=== PATIENT | female | born 1995 | race Caucasian/White ===

== ENCOUNTER 2017-06-25 10:59 | Emergency (ER) | payer MEDICAID, SELFPAY ==
[2017-06-25 11:07] VITALS: BP 121/75; PULSE 81; RESP 16; TEMP 36.4; O2SAT 99; BMI 24.0
[2017-06-25 11:13] VITALS: BP 133/74; PULSE 79; RESP 18; TEMP 36.6; O2SAT 98; BMI 24.0
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
[2017-06-25 11:52] VITALS: BP 132/88; PULSE 70; RESP 18; TEMP 36.6
== END 2017-06-25 11:53 | disposition home or self-care (01) ==
PROVIDERS: Emergency Provider Nurse Practitioner; Family Provider Family Medicine
DX: T23.251A Burn of second degree of right palm, initial encounter (principal); X15.0XXA Contact with hot stove (kitchen), initial encounter; Y92.010 Kitchen of single-family (private) house as the place of occurrence of the external cause
CPT/HCPCS: 99202

== ENCOUNTER → 2018-10-04 14:05 | Outpatient (CLI) | payer MEDICAID, SELFPAY ==
[2018-10-04 14:13] LABS: Adenovirus F 40/41, stool Not Detected (NotDetected); Astrovirus Not Detected (NotDetected); Campylobacter Not Detected (NotDetected); Clostridium Difficile A/B, PCR Not Detected (NotDetected); Cryptosporidium Not Detected (NotDetected); Cyclospora Cayetanesis Not Detected (NotDetected); Entamoeba histolytica Not Detected (NotDetected); Enteroaggregative E coli Not Detected (NotDetected); Enteropathogenic E coli Not Detected (NotDetected); Enterotoxigenic E coli Not Detected (NotDetected); Giardia lamblia Not Detected (NotDetected); Norovirus Not Detected (NotDetected); Plesimonas Shigalloides, PCR Not Detected (NotDetected); Rotavirus A Not Detected (NotDetected); Salmonella, PCR Not Detected (NotDetected); Sapovirus Not Detected (NotDetected); Shiga-like toxin E coli Not Detected (NotDetected); Shigella Enterovasive E coli Not Detected (NotDetected); Vibrio Cholerae Not Detected (NotDetected); Vibrio, PCR Not Detected (NotDetected); Yersinia Entercolitica, PCR Not Detected (NotDetected)
== END ==
PROVIDERS: Visit Provider Nurse Practitioner Family
DX: K52.9 Noninfective gastroenteritis and colitis, unspecified (principal)
CPT/HCPCS: 87507

== ENCOUNTER → 2018-10-17 15:47 | Outpatient (POV) | payer MEDICAID, SELFPAY | PROVIDERS: PCP Nurse Practitioner Family; Visit Provider Nurse Practitioner Family | DX: Z00.00 Encounter for general adult medical examination without abnormal findings (principal) ==

== ENCOUNTER → 2018-11-28 13:45 | Outpatient (POV) | payer MEDICAID, SELFPAY | PROVIDERS: PCP Nurse Practitioner Family; Visit Provider Nurse Practitioner Family | DX: Z00.00 Encounter for general adult medical examination without abnormal findings (principal) ==

== ENCOUNTER → 2020-05-23 12:15 | Outpatient (CLI) | payer BC, SELFPAY ==
[2020-05-23 13:01] LABS: Basophils % 0.3 % (0.1-2.0); Eosinophils # 0.1 K/mm3 (0.0-0.4); Eosinophils % 1.1 % (0.1-12.0); Hematocrit 40.4 % (37.0-47.0); Hemoglobin 13.1 g/dL (12.2-16.2); Lymphocytes # 1.8 K/mm3 (0.7-4.5); Lymphocytes % 25.4 % (10-50); Mean Corpuscular HGB Conc 32.4 g/dL (31.8-35.4); Mean Corpuscular Hemoglobin 27.6 pg (27.0-31.2); Mean Corpuscular Volume 85.1 fl (81-99); Mean Platelet Volume 7.6 fl (7.4-10.4); Monocytes # 0.4 K/mm3 (0.1-1.0); Monocytes % 6.2 % (1.7-9.3); Neutrophils # 4.7 K/mm3 (1.8-7.8); Platelet Count 256 K/mm3 (142-424); Red Blood Count 4.75 M/mm3 (4.20-5.40); Red Cell Distribution Width 13.2 % (11.5-17.5)
[2020-05-23 13:38] LABS: Strep Scrn Group A (Rapid) Negative (Negative)
== END ==
PROVIDERS: PCP Family Medicine; Visit Provider Nurse Practitioner Family
DX: Z20.822 Contact with and (suspected) exposure to COVID-19 (principal); J02.9 Acute pharyngitis, unspecified
CPT/HCPCS: 36415; 85025; 87430; U0003

== ENCOUNTER → 2020-07-08 11:06 | Outpatient (CLI) | payer BC, SELFPAY ==
[2020-07-08 13:13] LABS: HCG,Quantitative 13003 mIU/ml (0-5.42)
== END ==
PROVIDERS: Visit Provider Nurse Practitioner Obstetrics & Gynecology
DX: Z34.90 Encounter for supervision of normal pregnancy, unspecified, unspecified trimester (principal)
CPT/HCPCS: 36415; 84702

== ENCOUNTER → 2020-07-15 16:36 | Outpatient (CLI) | payer BC, SELFPAY ==
[2020-07-15 17:04] LABS: Basophils # 0.1 K/mm3 (0-0.2); Basophils % 0.5 % (0.1-2.0); Eosinophils # 0.1 K/mm3 (0.0-0.4); Hematocrit 41.8 % (37.0-47.0); Lymphocytes % 20.1 % (10-50); Mean Corpuscular HGB Conc 33.6 g/dL (31.8-35.4); Mean Corpuscular Hemoglobin 28.4 pg (27.0-31.2); Mean Corpuscular Volume 84.6 fl (81-99); Mean Platelet Volume 7.6 fl (7.4-10.4); Monocytes # 0.4 K/mm3 (0.1-1.0); Neutrophils # 7.6 K/mm3 (1.8-7.8); Neutrophils % 74.4 % (37.0-80.0); Platelet Count 275 K/mm3 (142-424); Red Blood Count 4.94 M/mm3 (4.20-5.40); Red Cell Distribution Width 13.6 % (11.5-17.5); White Blood Count 10.2 K/mm3 (4.8-10.8)
[2020-07-17 08:23] LABS: HIV Screen 4th Generation wRfx Non Reactive (Non Reactive)
[2020-07-17 18:04] LABS: Hepatitis B Surface Antigen Negative (Negative); Hepatitis C Antibody <0.1 s/co ratio (0.0-0.9); Rapid Plasma Reagin Ab Titer Non Reactive (NonRea<1:1)
== END ==
PROVIDERS: Visit Provider Nurse Practitioner Obstetrics & Gynecology
DX: Z34.90 Encounter for supervision of normal pregnancy, unspecified, unspecified trimester (principal)
CPT/HCPCS: 36415; 85025; 86592; 86703; 86762; 86850; 87340; 87380; G0432

== ENCOUNTER → 2020-07-17 14:06 | Outpatient (CLI) | payer BC, SELFPAY ==
--- NOTE | 2020-07-17 14:12 | US_ITS ---
PROCEDURE: US OB <= 14 WEEKS FETUS CLINICAL INDICATION: for dates COMPARISON: No exams were available for comparison FINDINGS: An intrauterine gestational sac is present with a pole with a crown-rump length of 1.13cm correlating to gestational age of 7weeks 2days. heart tones are present with an FHR of 149bpm. Yolk sac is noted. Carpal is lutea cyst is noted in the right ovary. Left ovary is unremarkable. IMPRESSION: Single viable intrauterine gestation with gestational age of 7 weeks and 2 days. Estimated due date by Ultrasound is 03/03/2021 Dictated by: Radha Velasco 07/18/2020 13:13 Radha Velasco in [facility] 07/18/2020 13:13
== END ==
PROVIDERS: PCP Family Medicine; Visit Provider Nurse Practitioner Obstetrics & Gynecology
DX: Z34.90 Encounter for supervision of normal pregnancy, unspecified, unspecified trimester (principal)
CPT/HCPCS: 76801

== ENCOUNTER 2020-07-30 05:35 | Emergency (ER) | payer BC, SELFPAY ==
[2020-07-30 05:38] VITALS: BP 154/77; PULSE 76; RESP 20; TEMP 36.6; O2SAT 100; BMI 26.6
--- NOTE | 2020-07-30 05:43 | HMH.EDGENADL ---
ED Disposition Clinical Impression: Morning sickness Disposition: Home, Self-Care Condition on Discharge: Good Additional Instructions: Take Reglan in the mornings for nausea/vomiting. Follow a bland diet. Follow-up with [facility]. Immediate return if any intractable nausea/vomiting, hematemesis, vaginal bleeding, abdominal pain, other new symptoms. Prescriptions: Metoclopramide HCl [Reglan 5mg Tablet] 5 mg PO AC PRN 21 Days #21 tab PRN Reason: Vomiting Transmission Status: Pending to [facility] Referrals: Enrike Pace [Primary Care Provider] - - Critical Care Critical Care Time: No Attestation: On , the high probability of a clinically significant, sudden or life threatening deterioration of the following system(s) required my full and direct attention, intervention and personal management. The time I documented below is in addition to time spent performing reported procedures but includes the following listed in this critical care notation. Medical Decision Making - Medical Records Medical records reviewed: Yes: I reviewed the patient's medical records. - Scot Inquiry Pt receiving controlled substance: No Vital Signs: 07/30/20 05:38 Temperature 97.8 F Temperature Source Oral Pulse Rate [Right Brachial] 76 Respiratory Rate 20 Blood Pressure [Right Arm] 154/77 H Blood Pressure Mean [Right Arm] 102 Blood Pressure Source [Right Arm] Automatic Cuff 02 Sat by Pulse Oximetry 100 Oxygen Delivery Method Room Air - Lab Data Lab Results 07/30/20 05:58: WBC 8.2, RBC 4.57, Hgb 12.8, Hct 38.1, MCV 83.3, MCH 28.0, MCHC 33.6, RDW 13.6, Plt Count 218, MPV 7.2 L, Neut % (Auto) 77.2, Lymph % (Auto) 17.6, [place] % (Auto) 4.5, Eos % (Auto) 0.5, Baso % (Auto) 0.2, Neut # (Auto) 6.3, Lymph # (Auto) 1.4, [place] # (Auto) 0.4, Eos # (Auto) 0.0, Baso # (Auto) 0.0 07/30/20 05:58: Sodium 137, Potassium 3.8, Chloride 103, Carbon Dioxide 25, Anion Gap 12.8, BUN 6 L, Creatinine 0.50 L, Estimated Creat Clear 224, Estimated GFR 152, Est GFR ( Amer) 183, Glucose 107 H, Calcium 9.4, Magnesium 1.8, Total Bilirubin 0.4, AST 27, ALT 17, Alkaline Phosphatase 54, Total Protein 7.1, Albumin 4.3, Globulin 2.8, Albumin/Globulin Ratio 1.5, Lipase 142, HCG, Quant [id number] H 07/30/20 06:58: Urine Color Yellow, Urine Appearance Clear, Urine pH 8.5, Ur Specific [place] 1.015, Urine Protein Negative, Urine Glucose (UA) Negative, Urine Ketones Negative, Urine Blood Negative, Urine Nitrate Negative, Urine Bilirubin Negative, Urine Urobilinogen 0.2, Ur Leukocyte Esterase Negative, Urine RBC None, Urine WBC 3-5, Ur Squamous Epith Cells Occasional, Urine Bacteria None Result diagrams: 07/30/20 05:58 07/30/20 05:58 Orders (Tests/Meds): ED MEDICATIONS Generic Name Dose Route Start Last Admin Trade Name Freq PRN Reason Stop Dose Admin Lactated Ringer's 1,000 mls @ 999 mls/hr 07/30/20 05:45 07/30/20 05:50 Lactated Ringer's 1000 Ml Bag IV 07/30/20 06:45 999 mls/hr .Q1H1M JOHANNY Administration Discontinued Medications Generic Name Dose Route Start Last Admin Trade Name Freq PRN Reason Stop Dose Admin Doxylamine Succinate/Pyridoxine 1 tab 07/30/20 05:45 07/30/20 05:50 Doxylamine 10mg/Pyridoxine 10mg Tablet PO 07/30/20 05:46 1 tab ONCE ONE Administration Pyridoxine HCl 25 mg 07/30/20 05:45 Pyridoxine (Vitamin B6) 50mg Tablet PO 07/30/20 05:46 ONCE ONE Medical Decision Narrative: Patient 25-year-old female presenting with vomiting in the first trimester . Differential diagnosis does include morning sickness versus hyperemesis gravidarum versus atypical pancreatitis versus cystitis. At this time, patient did have some blood mixed into her vomitus consistent with a superficial mucosal tear of her esophagus. No crepitus noted on examination or any signs consistent with pneumomediastinum. She is rather well-appearing. Normal vital signs. No vaginal bleeding or abdominal pain. Wor
[2020-07-30 06:08] LABS: Basophils % 0.2 % (0.1-2.0); Eosinophils % 0.5 % (0.1-12.0); Hematocrit 38.1 % (37.0-47.0); Hemoglobin 12.8 g/dL (12.2-16.2); Lymphocytes # 1.4 K/mm3 (0.7-4.5); Lymphocytes % 17.6 % (10-50); Mean Corpuscular HGB Conc 33.6 g/dL (31.8-35.4); Mean Corpuscular Volume 83.3 fl (81-99); Mean Platelet Volume 7.2 fl (7.4-10.4); Monocytes # 0.4 K/mm3 (0.1-1.0); Monocytes % 4.5 % (1.7-9.3); Neutrophils # 6.3 K/mm3 (1.8-7.8); Neutrophils % 77.2 % (37.0-80.0); Platelet Count 218 K/mm3 (142-424); Red Blood Count 4.57 M/mm3 (4.20-5.40); Red Cell Distribution Width 13.6 % (11.5-17.5); White Blood Count 8.2 K/mm3 (4.8-10.8)
[2020-07-30 06:11] LABS: Chloride 103 mmol/L (98-107); Potassium 3.8 mmoL/L (3.5-5.1); Sodium 137 mmol/L (136-145)
[2020-07-30 06:14] LABS: Alanine Aminotransferase 17 U/L (12-78); Albumin Level 4.3 g/dl (3.5-5.0); Albumin/Globulin Ratio 1.5 (1.1-1.8); Alkaline Phosphatase 54 U/L (38-126); Anion Gap 12.8 mEq/L (5-15); Aspartate Amino Transferase 27 U/L (14-36); Bilirubin,Total 0.4 mg/dl (0.2-1.3); Blood Urea Nitrogen 6 mg/dl (7-17); Calcium 9.4 mg/dl (8.4-10.2); Carbon Dioxide 25 mmol/L (22.0-30.0); Estimated Glomerular Filt Rate 152 ml/min (>60); GFR (African American) 183 ML/MIN (>60); Globulin 2.8 g/dL (1.3-3.2); Glucose 107 mg/dl (74-100); Lipase 142 U/L (23-300); Total Protein,Serum 7.1 g/dl (6.3-8.2)
[2020-07-30 06:15] LABS: Magnesium 1.8 mg/dl (1.6-2.3)
[2020-07-30 06:31] LABS: Creatinine Clearance Estimated 224 mL/min (50-200)
[2020-07-30 07:01] LABS: Microscopic, Urine URINE MICROSCOPIC (MICROSCOPIC)
[2020-07-30 07:02] LABS: Appearance,Urine CLEAR (Clear); Bilirubin,Urine Negative (Negative); Blood, Urine Negative (Negative); Color,Urine YELLOW (Yellow); Glucose,Urine (UA) Negative (Negative); Ketones,Urine Negative (Negative); Leukocyte Esterase,Urine Negative (Negative); Nitrate,Urine Negative (Negative); PH,Urine 8.5 (5.0-8.5); Protein,Urine Negative (Negative); Specific Gravity, Urine 1.015 (1.005-1.030); Urobilinogen,Urine 0.2 EU/dl (0.2)
[2020-07-30 07:17] LABS: Squamous Epithelial Cell,Urine Occasional #/hpf (0-5)
[2020-07-30 07:37] VITALS: BP 132/71; PULSE 81; RESP 18; TEMP 36.7; O2SAT 98
== END 2020-07-30 07:31 | disposition home or self-care (01) ==
PROVIDERS: Emergency Provider Emergency Medicine; PCP Family Medicine
DX: O21.0 Mild hyperemesis gravidarum (principal); Z3A.09 9 weeks gestation of pregnancy
CPT/HCPCS: 80053; 81001; 83690; 83735; 84702; 85025; 99281

== ENCOUNTER → 2020-10-14 13:47 | Outpatient (CLI) | payer BC, SELFPAY ==
--- NOTE | 2020-10-14 13:48 | US_ITS ---
PROCEDURE: US OB /MATERNAL DETAIL CLINICAL INDICATION: US OB Complete 20wk+ Anatomy Scan COMPARISON: US US OB <= 14 WEEKS FETUS from 07/17/2020 FINDINGS: Single live fetus which is in cephalic presentation. heart body motion noted. Placenta is posterior and grade 1. Cervix is closed measuring 4 cm. Complete survey performed and was unremarkable on the submitted images as in PACS. No discrete anomalies identified on survey imaging by technologist. Active fetus. Three-vessel cord with satisfactory umbilical cord insertion. 4- chamber heart noted. Survey of brain & ventricles Unremarkable. Face and neck survey unremarkable. Diaphragm and chest views unremarkable. Abdomen: Both kidneys noted and unremarkable. Stomach noted and satisfactory. Spine: Survey of the spine satisfactory with no anomalies identified nor imaged. Both arms and legs noted. Amniotic Fluid: Adequate. Maternal adnexa: No significant findings. Measurements: Average ultrasound age 20weeks 5days. Gestational Age 20weeks Estimated due date by ultrasound age 1102/26/2021. Estimated weight 364g BPD = 21weeks OFD = 20weeks 5days HC = 20weeks 1day AC = 20weeks 4days FL = 20weeks 6days Growth Percentile= 79Percent% Heart Rate = 140bpm Cerebellum = 20weeks 2days Humerus = 20weeks 4days HC/AC is 1.14 CI is 0.81 FL/BPD is 0.69 FL/AC is 0.22 IMPRESSION: Live IUP at 20 weeks 5 days. Cephalic presentation. No obvious anomalies. All parameters correlate. Please see above for detail. Dictated by: Jovi Hernandez MD 10/15/2020 08:18 Jovi Hernandez MD in OV 10/15/2020 08:18
== END ==
PROVIDERS: PCP Internal Medicine; Visit Provider Nurse Practitioner Obstetrics & Gynecology
DX: Z36.0 Encounter for antenatal screening for chromosomal anomalies (principal)
CPT/HCPCS: 76811

== ENCOUNTER → 2020-12-07 08:11 | Outpatient (CLI) | payer BC, SELFPAY ==
[2020-12-07 09:00] LABS: Glucose,Fasting 85 mg/dl (74-100)
[2020-12-07 11:00] LABS: Glucose 1 Hour 89 mg/dL (74-100)
== END ==
PROVIDERS: Visit Provider Nurse Practitioner Obstetrics & Gynecology
DX: Z34.90 Encounter for supervision of normal pregnancy, unspecified, unspecified trimester (principal)
CPT/HCPCS: 36415; 82951

== ENCOUNTER 2021-01-15 21:25 | Outpatient (CLI) | payer BC, SELFPAY ==
[2021-01-15 21:40] VITALS: BMI 31.7
[2021-01-15 21:53] VITALS: BP 129/76; PULSE 92; RESP 18; TEMP 36.7; O2SAT 98; BMI 31.7
[2021-01-15 21:56] LABS: Microscopic, Urine URINE MICROSCOPIC (MICROSCOPIC)
[2021-01-15 22:02] LABS: Appearance,Urine CLEAR (Clear); Bilirubin,Urine Negative (Negative); Blood, Urine Negative (Negative); Color,Urine YELLOW (Yellow); Glucose,Urine (UA) Negative (Negative); Ketones,Urine Negative (Negative); Leukocyte Esterase,Urine Negative (Negative); Nitrate,Urine Negative (Negative); Protein,Urine Negative (Negative); Specific Gravity, Urine 1.015 (1.005-1.030); Urobilinogen,Urine 0.2 EU/dl (0.2)
[2021-01-15 22:15] LABS: Barbiturates Screen,Urine Negative ng/ml (<200); Benzodiazepines Screen,Urine Negative ng/ml (<200)
[2021-01-15 22:16] LABS: Amphetamine/Metha Screen,Urine Negative ng/ml (<1000)
[2021-01-15 22:17] LABS: Cannabinoid Screen,Urine Positive ng/ml (<50); Cocaine Screen,Urine Negative ng/ml (<300)
[2021-01-15 22:18] LABS: Methadone Screen,Urine Negative ng/ml (<300)
[2021-01-15 22:19] LABS: Opiate Screen,Urine Negative ng/ml (<300); Phencyclidine Screen,Urine Negative ng/ml (<25)
[2021-01-15 22:22] LABS: Squamous Epithelial Cell,Urine Occasional #/hpf (0-5); WBC,Urine Occasional #/hpf (0-3)
== END 2021-01-15 22:30 | disposition home or self-care (01) ==
LOC: OBOUT 21:29 → OB 21:31
PROVIDERS: PCP Nurse Practitioner Obstetrics & Gynecology; Visit Provider Nurse Practitioner Obstetrics & Gynecology
DX: O36.8130 Decreased fetal movements, third trimester, not applicable or unspecified (principal); Z3A.33 33 weeks gestation of pregnancy
CPT/HCPCS: 59025; 80305; 81001; G0463

== ENCOUNTER → 2021-01-29 18:22 | Outpatient (CLI) | payer BC, SELFPAY | PROVIDERS: Visit Provider Nurse Practitioner Obstetrics & Gynecology | DX: Z34.90 Encounter for supervision of normal pregnancy, unspecified, unspecified trimester (principal) | CPT/HCPCS: 86403 ==

== ENCOUNTER → 2021-01-30 15:48 | Outpatient (CLI) | payer BC, SELFPAY ==
[2021-01-30 16:29] LABS: Basophils % 0.3 % (0.1-2.0); Eosinophils # 0.1 K/mm3 (0.0-0.4); Eosinophils % 0.9 % (0.1-12.0); Hematocrit 36.8 % (37.0-47.0); Hemoglobin 12.3 g/dL (12.2-16.2); Lymphocytes % 16.3 % (10-50); Mean Corpuscular HGB Conc 33.5 g/dL (31.8-35.4); Mean Corpuscular Hemoglobin 31.1 pg (27.0-31.2); Mean Corpuscular Volume 92.8 fl (81-99); Mean Platelet Volume 8.6 fl (7.4-10.4); Monocytes # 0.5 K/mm3 (0.1-1.0); Monocytes % 4.5 % (1.7-9.3); Neutrophils # 9.4 K/mm3 (1.8-7.8); Platelet Count 260 K/mm3 (142-424); Red Blood Count 3.97 M/mm3 (4.20-5.40); Red Cell Distribution Width 14.9 % (11.5-17.5); White Blood Count 12.1 K/mm3 (4.8-10.8)
[2021-01-30 17:14] LABS: D-Dimer 1.02 ug/mL (0.0-0.5)
[2021-01-30 17:54] LABS: Alanine Aminotransferase 19 U/L (12-78); Aspartate Amino Transferase 28 U/L (14-36); Blood Urea Nitrogen 9 mg/dl (7-17); Calcium 9.3 mg/dl (8.4-10.2); Carbon Dioxide 21 mmol/L (22.0-30.0); Chloride 107 mmol/L (98-107); Estimated Glomerular Filt Rate 273 ml/min (>60); GFR (African American) 331 ML/MIN (>60); Glucose 105 mg/dl (74-100); Sodium 136 mmol/L (136-145); Uric Acid 2.7 mg/dl (2.5-6.2)
[2021-01-30 17:59] LABS: Activated Partial Thrombo Time 24.8 seconds (22.8-30.6); Fibrinogen 504 mg/dL (229.9-363.5); INR 0.87 (0.9-1.1); Prothrombin Time 9.9 seconds (10.1-12.5)
[2021-01-30 18:03] LABS: NT Pro Brain Natriuretic Pep. 30.2 pg/mL (0-125)
== END ==
PROVIDERS: Visit Provider Nurse Practitioner Obstetrics & Gynecology
DX: O13.9 Gestational [pregnancy-induced] hypertension without significant proteinuria, unspecified trimester (principal); I42.9 Cardiomyopathy, unspecified
CPT/HCPCS: 36415; 80048; 83880; 84450; 84460; 84550; 85025; 85378; 85384; 85610; 85730

== ENCOUNTER → 2021-02-06 07:50 | Outpatient (CLI) | payer BC, SELFPAY ==
--- NOTE | 2021-02-06 07:51 | CA_ITS ---
APPROVED REPORT EXAM: Comprehensive 2D, Doppler, and color-flow Echocardiogram Pyrotechnician: Sharlene Jesus RVT Ht: 5 ft 9 in Wt: 224lbs BSA: 2.17 BP: 122/76 mmHg Indications: EDEMA, 36 WKS PREG,SOA 2D Dimensions LVOT 2.00 cm (M/F) 1.5-2.5 LA Volume 12.70 mL LA Volume Index 5.87 mL/m2 (M/F) 16-34 M-Mode Dimensions RVDd 2.66 cm (0.9-2.6) LA Diam 2.80 cm (1.9-4.0) LVDd 3.61 cm (3.5-5.7) Ao Diam 3.22 cm (2.0-3.7) LVDs 2.12 cm (3.5-5.7) IVSd 0.98 cm (0.6-1.1) PWd 0.97 cm (0.6-1.1) EF (Teich) 73.00% FS 41.30% EDV (Teich) 54.80 mL TAPSE 1.98 (<1.7) ESV (Teich) 14.80 mL LV Diastology E Decel Time 150.00 (160-240 msec) E/A Ratio 2.1 MED E' 6.50 (< 7 cm/sec) E'/MED E' Ratio 13.42 (>14) LAT E' 12.30 (<10 cm/sec) E/LAT E' Ratio 7.09 (>14) Aortic Valve AO Peak GR. 4.10 mmHg Mitral Valve MV E Max Molina. 87.00 (40-130 cm/s) MV A Velocity 42.00 (40-130 cm/s) E/A Ratio 2.06 MV Decel. Time 150.00 (160-240 ms) MV PHT 44.00 ms Pulmonary Valve PV Peak Velocity 74.00 (50-150 cm/s) Tricuspid Valve TR P. Velocity 204.00 cm/s RAP Estimate 10.00 mmHg RVSP 26.70 mmHg Left Ventricle Left atrium is normal size, left ventricle is normal size, there is no concentric left ventricular hypertrophy, there is preserved left ventricular systolic function, visually estimated ejection fraction 55% with no regional wall motion abnormality, diastolic parameters are within normal range. Right Ventricle Right atrium and right ventricle are normal size and contractility. Aortic Valve Aortic valve is grossly normal, there is no aortic stenosis or aortic insufficiency. Mitral Valve Mitral valve is grossly normal, there is trace mitral regurgitation. Tricuspid Valve Tricuspid grossly normal, there is trace tricuspid regurgitation, tricuspid regurgitation jet velocity is inadequate for calculation of the right ventricular systolic pressure. Pulmonic Valve Pulmonic valve is poorly visualized. Great Vessels Aortic root is normal size. Inferior vena cava normal size with normal inspiratory collapse. Pericardium No significant pericardial effusion noted. Conclusion 1. Normal left ventricular size, preserved left ventricular systolic function, visually estimated ejection fraction 55% with no regional wall motion abnormality, diastolic parameters are within normal range. 2. Trace mitral and tricuspid regurgitation. 3. No significant pericardial effusion noted. 4. Inferior vena cava is normal size with normal inspiratory collapse. Electronically signed by : Vinayak Womack MD 02/06/2021 16:31:06
--- NOTE | 2021-02-06 10:26 | US_ITS ---
PROCEDURE: US OB BIOPHYSICAL PROFILE CLINICAL INDICATION: lga Large for gestational age TECHNIQUE: FINDINGS: The following parameters are obtained: There is a single live fetus present which is in cephalic presentation. The cervix is closed measuring 4 cm. The placenta is posterior and grade 2. Average ultrasound age is Average 37weeks 4days Estimated due date by ultrasound is 02/23/2021. Estimated weight is 3,247g. This is 82 percentile BPD: 38 weeks 1 day OFD: HC: 37 weeks 5 days AC: 38 weeks 2 days FL: 35 weeks 6 days heart rate: 128bpm bpm. HC/AC: 0.96 Cephalic index: 0.81 FL/BPD: 0.75 FL/AC: 0.2 Amniotic fluid index: 11.23cm Qualitative AFV: 2 breathing movements: 2 Gross body movements: 2 Tone: 2 Biophysical profile score: 8 IMPRESSION: Live IUP which is in cephalic presentation with an average ultrasound age of 37 weeks 4 days with an estimated weight of 3247 g which is 82 percentile. Normal amniotic fluid index of 11 cm. Normal biophysical profile 8 of 8 Dictated by: Jovi Hernandez MD 02/06/2021 16:39 Jovi Hernandez MD in [facility] 02/06/2021 16:39
== END ==
PROVIDERS: PCP Family Medicine; Visit Provider Nurse Practitioner Obstetrics & Gynecology
DX: O36.60X0 Maternal care for excessive fetal growth, unspecified trimester, not applicable or unspecified; I42.9 Cardiomyopathy, unspecified; R60.9 Edema, unspecified
CPT/HCPCS: 76816; 76819; 93306

== ENCOUNTER 2021-02-13 01:23 | Outpatient (CLI) | payer BC, SELFPAY ==
[2021-02-13 01:31] VITALS: BMI 33.6
[2021-02-13 01:42] LABS: Microscopic, Urine URINE MICROSCOPIC (MICROSCOPIC)
[2021-02-13 01:44] LABS: Appearance,Urine SL CLOUDY (Clear); Bilirubin,Urine Negative (Negative); Blood, Urine Negative (Negative); Color,Urine YELLOW (Yellow); Glucose,Urine (UA) Negative (Negative); Ketones,Urine Negative (Negative); Leukocyte Esterase,Urine Negative (Negative); Nitrate,Urine Negative (Negative); PH,Urine 6.5 (5.0-8.5); Protein,Urine Negative (Negative); Specific Gravity, Urine 1.025 (1.005-1.030); Urobilinogen,Urine 0.2 EU/dl (0.2)
[2021-02-13 01:51] LABS: Amorphous Sediment,Urine Trace /lpf; Bacteria,Urine 4+ /lpf; Mucus,Urine 1+ /lpf
[2021-02-13 01:58] LABS: Barbiturates Screen,Urine Negative ng/ml (<200)
[2021-02-13 01:59] LABS: Benzodiazepines Screen,Urine Negative ng/ml (<200)
[2021-02-13 02:00] LABS: Amphetamine/Metha Screen,Urine Negative ng/ml (<1000)
[2021-02-13 02:01] LABS: Cocaine Screen,Urine Negative ng/ml (<300)
[2021-02-13 02:02] LABS: Cannabinoid Screen,Urine Negative ng/ml (<50); Methadone Screen,Urine Negative ng/ml (<300)
[2021-02-13 02:03] LABS: Opiate Screen,Urine Negative ng/ml (<300); Phencyclidine Screen,Urine Negative ng/ml (<25)
[2021-02-13 02:04] VITALS: BP 133/88; PULSE 89; RESP 18; TEMP 36.5; O2SAT 97; BMI 33.7
[2021-02-13 03:51] LABS: Chloride 105 mmol/L (98-107); Potassium 3.7 mmoL/L (3.5-5.1); Sodium 137 mmol/L (136-145)
[2021-02-13 03:54] LABS: Alanine Aminotransferase 18 U/L (12-78); Anion Gap 11.7 mEq/L (5-15); Aspartate Amino Transferase 26 U/L (14-36); Blood Urea Nitrogen 8 mg/dl (7-17); Calcium 8.8 mg/dl (8.4-10.2); Carbon Dioxide 24 mmol/L (22.0-30.0); Creatinine Clearance Estimated 284 mL/min (50-200); Estimated Glomerular Filt Rate 152 ml/min (>60); GFR (African American) 183 ML/MIN (>60); Glucose 91 mg/dl (74-100)
[2021-02-13 04:12] LABS: D-Dimer 1.11 ug/mL (0.0-0.5)
[2021-02-13 04:13] LABS: Activated Partial Thrombo Time 22.2 seconds (22.8-30.6); INR 0.86 (0.9-1.1); Prothrombin Time 9.8 seconds (10.1-12.5)
[2021-02-13 05:17] LABS: Fibrinogen 444 mg/dL (229.9-363.5)
== END 2021-02-13 04:40 | disposition home or self-care (01) ==
LOC: OBOUT 01:25 → OB 01:27
PROVIDERS: PCP Family Medicine; Visit Provider Nurse Practitioner Obstetrics & Gynecology
DX: O13.3 Gestational [pregnancy-induced] hypertension without significant proteinuria, third trimester (principal); Z3A.37 37 weeks gestation of pregnancy; R51.9 Headache, unspecified; R11.2 Nausea with vomiting, unspecified; R60.9 Edema, unspecified
CPT/HCPCS: 59025; 80048; 80305; 81001; 84450; 84460; 84550; 85378; 85384; 85610; 85730; 87086; 96365; G0463

== ENCOUNTER 2021-02-24 05:10 | Inpatient (IN) | payer BC, SELFPAY ==
[2021-02-24 05:15] VITALS: BMI 33.5
[2021-02-24 06:06] LABS: Coronavirus 19, PCR Not Detected (NotDetected); Influenza A, PCR Not Detected (NotDetected); Influenza B, PCR Not Detected (NotDetected)
[2021-02-24 06:06] LABS: Microscopic, Urine URINE MICROSCOPIC (MICROSCOPIC)
[2021-02-24 06:10] VITALS: BP 127/77; PULSE 87; RESP 18; O2SAT 97; BMI 33.5
[2021-02-24 06:11] LABS: Basophils % 0.5 % (0.1-2.0); Eosinophils # 0.1 K/mm3 (0.0-0.4); Eosinophils % 1.3 % (0.1-12.0); Hematocrit 37.7 % (37.0-47.0); Hemoglobin 12.7 g/dL (12.2-16.2); Lymphocytes % 21.7 % (10-50); Mean Corpuscular HGB Conc 33.6 g/dL (31.8-35.4); Mean Corpuscular Hemoglobin 30.7 pg (27.0-31.2); Mean Corpuscular Volume 91.4 fl (81-99); Mean Platelet Volume 9.2 fl (7.4-10.4); Monocytes # 0.4 K/mm3 (0.1-1.0); Monocytes % 4.6 % (1.7-9.3); Neutrophils # 6.7 K/mm3 (1.8-7.8); Platelet Count 246 K/mm3 (142-424); Red Blood Count 4.13 M/mm3 (4.20-5.40); Red Cell Distribution Width 14.5 % (11.5-17.5); White Blood Count 9.2 K/mm3 (4.8-10.8)
[2021-02-24 06:13] LABS: Appearance,Urine CLEAR (Clear); Bilirubin,Urine Negative (Negative); Blood, Urine Negative (Negative); Color,Urine YELLOW (Yellow); Glucose,Urine (UA) Negative (Negative); Ketones,Urine Negative (Negative); Leukocyte Esterase,Urine Negative (Negative); Nitrate,Urine Negative (Negative); Protein,Urine TRACE (Negative); Specific Gravity, Urine >= 1.030 (1.005-1.030); Urobilinogen,Urine 0.2 EU/dl (0.2)
[2021-02-24 06:55] LABS: Bacteria,Urine 1+ /lpf
[2021-02-24 06:56] LABS: Amorphous Sediment,Urine 1+ /lpf
[2021-02-24 07:25] LABS: Amphetamine/Metha Screen,Urine Negative ng/ml (<1000)
[2021-02-24 07:30] LABS: Barbiturates Screen,Urine Negative ng/ml (<200); Benzodiazepines Screen,Urine Negative ng/ml (<200)
[2021-02-24 07:31] LABS: Cannabinoid Screen,Urine Negative ng/ml (<50); Cocaine Screen,Urine Negative ng/ml (<300)
[2021-02-24 07:32] LABS: Methadone Screen,Urine Negative ng/ml (<300)
[2021-02-24 07:33] LABS: Opiate Screen,Urine Negative ng/ml (<300); Phencyclidine Screen,Urine Negative ng/ml (<25)
--- NOTE | 2021-02-24 09:23 | HMH.OBAPHP ---
OB - H&P: HPI Antepartum - History of Present Illness Chief complaint: Term , severe pedal edema History of present illness: She is a 25-year-old 1 para 0 at 39 weeks gestational age. She does complain of excessive swelling in her feet and ankles. Her blood pressure is doing well. We elected to deliver her at 39 weeks. - History of Present Criteria for establishing EDC:: LMP confirmed by 1st trimester US care: good care Ultrasounds: normal 1st trimester US Obstetrical complications: none Medical complications: none - Labs Blood type: O (+) positive Rubella: immune RPR/VDRL: nonreactive GBS status: negative HBsAG: negative [facility] History I have reviewed the patient's past medical history: Yes *Have you ever received a pneumonia vaccine?: No *Have you received a flu vaccine this season?: No Other Surgeries: Yes: No Previous Surgery. No: Amputation: No Fractures: No - *Social History Smoking Status: Never smoker Alcohol Intake: never Alcohol Intake Frequency:: other Substance Use Type: denies use *Occupational Status:: employed *Travel in the last 8 weeks: None Family Hx:: No significant family history Para: 0 Review of Systems - Review of Systems Review of systems:: pertinent systems reviewed and negative unless documented below Meds Home Medications Medication Instructions Recorded Confirmed Type vits 75-iron 28 mg-folic 1 pkg PO DAILY 07/08/20 02/24/21 History acid 800 mcg-omega3 440 mg oral pack Escitalopram Oxalate 10 mg PO DAILY 02/24/21 02/24/21 History Ferrous Sulfate 325 mg PO DAILY 02/24/21 02/24/21 History Allergies Allergy/AdvReac Type Severity Reaction Status Date / Time No Known Allergies Allergy Verified 02/21/21 09:47 OB - H&P: Exam - Physical Exam Vital signs: Pulse Resp BP Pulse Ox 87 18 127/77 97 02/24/21 06:10 02/24/21 06:10 02/24/21 06:10 02/24/21 06:10 - Constitutional no acute distress - Routine HEENT Exam Head: Present: normocephalic Eye: Present: EOMI, PERRL ENT: Present: mucous membranes moist - Routine Neck Exam Present: supple, full ROM - Routine Respiratory Exam Absent: accessory muscle use (good air entry bilaterally), respiratory distress, wheezes, crackles - Routine Cardiovascular Exam Present: RRR. Absent: murmur - Routine Abdominal Exam Present: soft, normoactive bowel sounds. Absent: tenderness, distended, guarding - Routine Rectal Exam Patient deferred: visual exam, digital exam - Routine Exam Patient deferred: external exam, groin exam, perineal exam - Routine Extremities Exam Present: full ROM. Absent: cyanosis, edema - Routine Skin Exam Present: intact. Absent: cyanosis - Routine Neurological Exam Present: alert, oriented X3 - Routine Psychiatric Exam Present: normal affect OB - Results - Labs Labs: Short CBC 02/24/21 Range/Units 05:46 WBC 9.2 (4.8-10.8) K/mm3 Hgb 12.7 (12.2-16.2) g/dL Hct 37.7 (37.0-47.0) % Plt Count 246 (142-424) K/mm3 Urine 02/24/21 Range/Units 05:20 Urine Color Yellow (Yellow) Urine Appearance Clear (Clear) Urine pH 6.0 (5.0-8.5) Ur Specific [place] >= 1.030 (1.005-1.030) Urine Protein Trace (Negative) Urine Glucose (UA) Negative (Negative) OB - A/P Antepartum (1) Normal delivery at term Status: Acute - Additional Plan Planning to breastfeed?: Yes Plan: induction Additional Information:: She is term with significant pedal edema. As result of that we have elected to induce her labor. We will expect a vaginal delivery.
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
--- NOTE | 2021-02-24 10:20 | P.PN_ITS ---
[facility] Anesthesia Checklist - Patient Identification Patient Identification: Arm Band, Verbal (Name & ) - Structural Data Admitted From: Inpatient Planned Operative Procedure/s: KRISTINA Consent for Planned Operative Procedure(s) Verified: Yes Verified Documents: Surgical Consent - NPO Status Verified Time NPO: 00:00 - Chart Verification Results Verified: CBC - Airway Assessment C-Spine Mobility Assessed: Yes TMJ Mobility Assessed: Yes Dentition: Good Dentition - Anesthesia Plan Anesthesia Risk discussed: Yes ASA Class: II Anesthesia Type: Epidural [facility] History I have reviewed the patient's past medical history: Yes *Have you ever received a pneumonia vaccine?: No *Have you received a flu vaccine this season?: No Anesthesia experience/problems:: no issues Other Surgeries: Yes: No Previous Surgery. No: Amputation: No Fractures: No - *Social History Smoking Status: Never smoker Alcohol Intake: never Alcohol Intake Frequency:: other Substance Use Type: denies use *Occupational Status:: employed *Travel in the last 8 weeks: None Family Hx:: No significant family history Para: 0
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
--- NOTE | 2021-02-24 11:51 | HMH.PHAINT ---
MEDICATION RECONCILIATION COMPLETED ON PATIENT USING EXTERNAL FILL HISTORY FROM PHARMACY. -MOLLY SHOOK, SEUND
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
--- NOTE | 2021-02-24 16:05 | HMH.DN ---
- Delivery Note Delivery Date:: 02/24/21 Delivery Time:: 15:42 Anesthesia Type: Epidural Was labor medically induced?: Yes Induction method: per pitocin protocol Gestational age (weeks): 39 delivered prior to 39 weeks?: No Justification for early elective delivery:: Benign Hypertension Gender: Male at 1 minute: 8 at 5 minutes: 9 LAC or MLE?: LAC Delivery Procedure:: She is a 25-year-old 1 now para 0 at 39 weeks gestational age. She had a considerable amount of swelling so we elected to bring her in for induction of labor at term. She is started on IV oxytocin and under labor epidural progressed to full dilation. She delivered spontaneously a liveborn male child at 3:42 PM in the afternoon of February 24, 2021. On deliver the head the anterior shoulder delivered and it was noted that there was a cord around the shoulder. This was reduced followed by the rest 's body atraumatically. The oropharynx and nasopharynx were bulb suction. The baby was vigorous. We allowed the cord to continue to pulsate for approximately 1 minute. The cord was then doubly clamped and cut and the infant was placed on the mother's abdomen for further care. The nurse assigned Apgars of at 1 minute and 9 at 5 minutes. We then obtained cord blood. She received IV oxytocin using gentle traction on the cord and countertraction on the fundus I was able to easily deliver the placenta intact 3 minutes after delivery. It had a normal 3 vessel cord. She had a second-degree perineal laceration was repaired in the usual fashion with 3-0 Vicryl Rapide suture to the superficial tissues and 2-0 Vicryl suture to the deep tissues the peritoneum. She also had a small right labial tear that was repaired with interrupted 3-0 Vicryl Rapide suture. She has O+ blood, she is rubella immune and was group B streptococcus negative. Her estimated blood loss was proximate 400 cc. We will weigh the amount of blood loss. Is Dr. Holguin. Laceration:: vaginal, labial Placental Delivery Description: Spontaneous
--- NOTE | 2021-02-24 19:15 | HMH.ACPN2 ---
Internal Medicine - PN: Subj *Date: 02/24/21 *Time: 19:15 Interval history: She has had slightly more blood loss than normal. She is up to about 680 cc of blood total. She is asymptomatic. She is hemodynamically stable. Her blood pressure is normal. Exam Vital signs and Labs for Last 24 Hours: Pulse Resp BP Pulse Ox 87 18 127/77 97 02/24/21 06:10 02/24/21 06:10 02/24/21 06:10 02/24/21 06:10 Laboratory Results - last 24 hr 02/24/21 05:20: Urine Color Yellow, Urine Appearance Clear, Urine pH 6.0, Ur Specific [place] >= 1.030, Urine Protein Trace, Urine Glucose (UA) Negative, Urine Ketones Negative, Urine Blood Negative, Urine Nitrate Negative, Urine Bilirubin Negative, Urine Urobilinogen 0.2, Ur Leukocyte Esterase Negative, Urine WBC 3-5, Ur Squamous Epith Cells 5-10, Amorphous Sediment 1+, Urine Bacteria 1+ 02/24/21 05:20: Urine Opiates Screen Negative, Urine Methadone Screen Negative, Ur Barbituates Screen Negative, Ur Phencyclidine Scrn Negative, Ur Amphetamines Screen Negative, U Benzodiazepines Scrn Negative, Urine Cocaine Screen Negative, U Marijuana (THC) Screen Negative 02/24/21 05:46: WBC 9.2, RBC 4.13 L, Hgb 12.7, Hct 37.7, MCV 91.4, MCH 30.7, MCHC 33.6, RDW 14.5, Plt Count 246, MPV 9.2, Neut % (Auto) 72.0, Lymph % (Auto) 21.7, [place] % (Auto) 4.6, Eos % (Auto) 1.3, Baso % (Auto) 0.5, Neut # (Auto) 6.7, Lymph # (Auto) 2.0, [place] # (Auto) 0.4, Eos # (Auto) 0.1, Baso # (Auto) 0.0 02/24/21 05:46: Blood Type O Positive, Antibody Screen Negative, Crossmatch (AHG) See Detail 02/24/21 05:49: SARS-CoV-2 (PCR) Not detected, Influenza A Untype (PCR) Not detected, Influenza Type B (PCR) Not detected I & O for Last 24 hours: Intake & Output 02/22/21 02/23/21 02/24/21 02/25/21 12:59 11:59 11:59 11:59 Weight 227 lb - Constitutional no acute distress - *Routine HEENT Exam Head: Present: normocephalic Eye: Present: EOMI, PERRL ENT: Present: mucous membranes moist Assessment and Plan (1) Normal delivery at term Status: Acute Category: Medical Code(s): O80 - Encounter for full-term uncomplicated delivery (2) hemorrhage Status: Acute Category: Medical Code(s): O72.1 - Other immediate hemorrhage - Assessment and plan all Dx Assessment and Plan for all problems:: Her perineum is intact. There is no active bleeding from the perineum. There was some bleeding from the vagina. I examined her and her uterus was well contracted but there were some clots in the lower uterine segment. I was able to break these up and I got another 40 cc of blood from the uterus. She has now received 2 doses of Hemabate. She seems to be stable and not actively bleeding. She is also on oxytocin. We will continue to closely observe her.
[2021-02-25 06:57] LABS: Hematocrit 31.4 % (37.0-47.0); Hemoglobin 10.4 g/dL (12.2-16.2)
--- NOTE | 2021-02-25 07:22 | HMH.ACPN2 ---
Internal Medicine - PN: Subj *Date: 02/25/21 *Time: 07:22 Interval history: She is doing well this morning. She is eating and drinking and ambulating. Her lochia is normal. She passed a couple of dime sized clots overnight. Her hemoglobin is stable. She is breast-feeding. Exam Vital signs and Labs for Last 24 Hours: Pulse Resp BP Pulse Ox 87 18 127/77 97 02/24/21 06:10 02/24/21 06:10 02/24/21 06:10 02/24/21 06:10 Laboratory Results - last 24 hr 02/24/21 05:20: Urine Opiates Screen Negative, Urine Methadone Screen Negative, Ur Barbituates Screen Negative, Ur Phencyclidine Scrn Negative, Ur Amphetamines Screen Negative, U Benzodiazepines Scrn Negative, Urine Cocaine Screen Negative, U Marijuana (THC) Screen Negative 02/24/21 05:46: Blood Type O Positive, Antibody Screen Negative, Crossmatch (AHG) See Detail 02/25/21 06:17: Hgb 10.4 L, Hct 31.4 L I & O for Last 24 hours: Intake & Output 02/22/21 02/23/21 02/24/21 02/25/21 12:59 11:59 11:59 11:59 Weight 227 lb - Constitutional no acute distress - *Routine HEENT Exam Head: Present: normocephalic Eye: Present: EOMI, PERRL ENT: Present: mucous membranes moist Assessment and Plan (1) Normal delivery at term Status: Acute Category: Medical Code(s): O80 - Encounter for full-term uncomplicated delivery (2) hemorrhage Status: Acute Category: Medical Code(s): O72.1 - Other immediate hemorrhage - Assessment and plan all Dx Assessment and Plan for all problems:: She is doing very well . She is breast-feeding. Her lochia is normal. We will send her home tomorrow.
--- NOTE | 2021-02-25 13:14 | SW/DCPLANNER ---
I received a referral for this patient regarding: positive THC use during . Patient tested positive for THC on 07/08/20, 01/14/21 and 01/15/21. Patient and are negative at admission. Patient stated those were the only times she used THC during due to nausea. Infant male (Segundo Eastman) was born on 02/24/21. Infants father (Orestes Eastman 10/13/93) was present at the time of my visit. Patient, Orestes and infant will reside at [address] [place] [address] at time of discharge. Patients contact number is [phone]. This is patient and infants father first child. Patient is interested in WIC and will follow up with local health dept. Patient is also interested in HANDS program: I will notify HANDS coordinator. Patient stated that she has everything she needs at home including: crib, carseat, clothing, diapers and breast feeding. Patients nurse (Nadia) stated that patient and infants father are appropriate with infant. Patient is planned to discharge home tomorrow with . I will continue to follow up with patients nurse during hospital stay.
--- NOTE | 2021-02-26 08:25 | P.DS_ITS ---
General - General Admission date:: 02/24/21 Discharge date: 02/26/21 HPI - History of Present Illness History of present illness: Is a 25-year-old 1 now para 0 at 30 she came in with slightly increased blood pressure and severe swelling in her legs. We elected to induce her labor. Hospital Course Hospital Course: She was started on IV oxytocin and progressed to full dilation. She delivered spontaneously a liveborn male child on the evening of February 24, 2021. The baby weighed 8 pounds 13 ounces and was 20-1/2 inches long. He had Apgars of 8 at 1 minute and 9 at 5 minutes. She has done well and has remained afebrile throughout her hospitalization. She is eating and drinking and ambulating. She is breast- feeding. She has O Rh+ blood, she is rubella immune and was group B streptococcus negative. Her medical records library professor is Dr. Holguin. She is discharged home to follow-up with me in approximately 2 weeks time. She will continue with her vitamins and iron. She is taking [id number]-[id number] analgesics. She was given the usual stretches with respect to limiting her activity, driving and sexual activity. Her condition on discharge is stable and improved. Rhogam Administration: Not Indicated Objective Vital signs: Pulse Resp BP Pulse Ox 87 18 127/77 97 02/24/21 06:10 02/24/21 06:10 02/24/21 06:10 02/24/21 06:10 no acute distress - *Routine HEENT Exam Head: Present: normocephalic Eye: Present: EOMI, PERRL ENT: Present: mucous membranes moist DS: Diagnosis - Discharge Diagnosis (1) Normal delivery at term Status: Acute (2) hemorrhage Status: Acute Discharge Plan - Patient Discharge Instructions ACTIVITY: No heavy lifting DIET: continue same diet - Follow up Plan Disposition: Home, Self-Care Condition at discharge:: Stable Home Medications: Home Medications Medication Instructions Recorded Confirmed Type Escitalopram Oxalate 10 mg PO DAILY 02/24/21 02/24/21 History Ferrous Sulfate 325 mg PO DAILY 02/24/21 02/24/21 History Pnv No.95/Ferrous Fum/Folic AC 1 each PO DAILY 02/24/21 02/24/21 History [ Vitamin Tablet] Prescriptions/Medication Reconciliation: Continued Ferrous Sulfate 325 mg PO DAILY Escitalopram Oxalate 10 mg PO DAILY Pnv No.95/Ferrous Fum/Folic AC [ Vitamin Tablet] 1 each PO DAILY - Problem Reconciliation Problems Reviewed?: Yes
== END 2021-02-26 13:35 | disposition home or self-care (01) | DRG 806 ==
PROVIDERS: Admitting Provider Nurse Practitioner Obstetrics & Gynecology; PCP Family Medicine; Visit Provider Nurse Practitioner Obstetrics & Gynecology
DX: O70.1 Second degree perineal laceration during delivery (principal); O72.1 Other immediate postpartum hemorrhage; Z37.0 Single live birth; Z3A.39 39 weeks gestation of pregnancy; I10 Essential (primary) hypertension
CPT/HCPCS: 59409; 36415; 59025; 80305; 81001; 85014; 85018; 85025; 86850; 94761; 96372; C1758; C9803; G0283; U0003; U0005

== ENCOUNTER 2021-05-10 10:19 | Emergency (ER) | payer BC, SELFPAY ==
[2021-05-10 11:20] VITALS: BP 124/78; PULSE 106; RESP 18; TEMP 36.8; O2SAT 99; BMI 28.5
--- NOTE | 2021-05-10 11:30 | HMH.EDUTC ---
[facility] [place] Impression: Close exposure to COVID-19 virus, Upper respiratory infection, viral Disposition: Home, Self-Care Condition on Discharge: Good Instructions: DI for COVID-19 (Suspected or Confirmed ), DI for Viral Upper Respiratory Infection -- Adult Additional Instructions: covid swab was sent to lab, call tomorrow for results. self isolate until test results are known to be negative No sign of a bacterial infection. Likely viral. Viruses can take 7-14 days to run their course. Nasal saline and bulb syringe or nose Lety to remove nasal drainage to help with nasal congestion. Hard to eat, drink, sleep with nasal congestion so important to keep this cleaned out. Monitor temp. Tylenol or Motrin as needed for pain or fever Encourage fluids, water, Gatorade, Powerade, Pedialyte if /toddler/child Warm salt water gargles Warm fluids Sore throat lozenges Sleep elevated Humidifier/vaporizer Follow-up immediately for new or worsening symptoms or no noticeable improvement over the next 48-72 hours. flonase for now and check with senior firewall engineer on wednesday what is best for congestion while Prescriptions: Fluticasone Propionate [Flonase 50mcg nasal spray 16gm] 1 spr NS DAILY 14 Days #9.9 ml Prescription Printed Referrals: Reyna Atkinson MD [Primary Care Provider] - Time of Disposition: 11:38 Medical Decision Making - Scot Inquiry Pt receiving controlled substance: No Vital Signs: 05/10/21 11:20 Temperature 98.3 F Temperature Source Oral Pulse Rate [Left] 106 H Respiratory Rate 18 Blood Pressure [Right Arm] 124/78 Blood Pressure Mean [Right Arm] 93 02 Sat by Pulse Oximetry 99 Orders (Tests/Meds): ORDERS Category Date Time Status Covid-19 Nasal PCR ([facility]) Routine Lab 05/10/21 11:15 [place] [facility] [place] - General Chief complaint: [facility] Stated complaint: covid exposed, symptoms Time Seen by Provider: 05/10/21 11:31 Mode of Arrival: Ambulatory Source of Information: Patient Limitations: No Limitations Description of Symptoms (Recalled from Triage Doc. by RN): pt c/o a cough, fatigue, THOMAS, sore throat, nasal drainage, chest congestion and dizziness. PT IS BREAST FEEDING. HEENT Symptoms (Recalled from RN notes): Yes (THOMAS, nasal drainage and sore throat) Resp Symptoms (Recalled from RN notes): Yes (chest congestion and cough) Skin Symptoms (Recalled from RN notes): No MS Symptoms (Recalled from RN notes): No Functional Status (Recalled from RN notes): wnl - History of Present Illness Provider Complaint: 25 yr old female presents c/o a cough, fatigue, THOMAS, sore throat, nasal drainage, chest congestion and dizziness. PT IS BREAST FEEDING. - Related Data Home Medications Medication Instructions Recorded Confirmed Escitalopram Oxalate 10 mg PO DAILY 02/24/21 04/08/21 Ferrous Sulfate 325 mg PO DAILY 02/24/21 04/08/21 Pnv No.95/Ferrous Fum/Folic AC 1 each PO DAILY 02/24/21 04/08/21 [ Vitamin Tablet] Previous Rx's Medication Instructions Recorded Fluticasone Propionate [Flonase 1 spr NS DAILY 14 Days #9.9 ml 05/10/21 50mcg nasal spray 16gm] Allergies Allergy/AdvReac Type Severity Reaction Status Date / Time No Known Allergies Allergy Verified 04/08/21 10:45 - Worker's Comp Is this a Worker's Comp case?: No [facility] History - Hepatitis A Screen Drug use history?: No High risk sexual behaviors?: No History of sexually transmitted infection?: No Currently employed?: No Childcare worker?: No Do you have indoor plumbing?: Yes Do you have electricity?: Yes Attestation statement:: This patient has been screened for Hepatitis A risk factors. I have reviewed the patient's past medical history: Yes Other Surgeries: Yes: No Previous Surgery. No: Amputation: No Fractures: No - Social History Smoking Status: Never smoker Alcohol Intake: never Alcohol Intake Frequency:: other Substance Use Type: denies use Occ
[2021-05-10 11:58] VITALS: BP 124/78; PULSE 106; RESP 18; TEMP 36.8
== END 2021-05-10 11:59 | disposition home or self-care (01) ==
PROVIDERS: Emergency Provider Nurse Practitioner Family; PCP Family Medicine
DX: J06.9 Acute upper respiratory infection, unspecified (principal)
CPT/HCPCS: 99202; C9803; G0463; U0003; U0005

== ENCOUNTER → 2021-05-12 09:39 | Outpatient (CLI) | payer BC, SELFPAY | PROVIDERS: Visit Provider Nurse Practitioner | DX: U07.1 COVID-19 (principal) | CPT/HCPCS: C9803; U0003; U0005 ==

== ENCOUNTER 2021-07-03 15:36 | Emergency (ER) | payer BC, SELFPAY ==
[2021-07-03 16:04] VITALS: BP 127/79; PULSE 104; RESP 18; TEMP 36.9; O2SAT 96; BMI 26.4
[2021-07-03 16:12] LABS: UTC Strep Screen (Rapid) Negative (Negative)
[2021-07-03 16:13] LABS: UTC Influenza A Antigen Negative (Negative); UTC Influenza B Antigen Negative (Negative)
[2021-07-03 16:21] VITALS: BP 127/79; PULSE 104; RESP 18; TEMP 36.9; O2SAT 96
--- NOTE | 2021-07-03 17:00 | HMH.EDUTC ---
[facility] [place] [facility] [place] Clinical Impression: Viral upper respiratory tract infection with cough Disposition: Home, Self-Care Condition on Discharge: Good Instructions: Cough, DI for Viral Syndrome Additional Instructions: Over the counter Robitussin may help with cough *Monitor Temp, Over the counter Motrin or Tylenol as directed/as needed Tylenol every 4 hours and Motrin every 6 hours (as long as your family doctor has told you that you can take it) for fever or pain. and straight to ER if unable to lower temp less than 101.0 after medication given *Warm salt water gargles may help to soothe the throat *Throat Lozenges *Warm fluids like tea with honey may help to soothe the throat *Sleep elevated *Humidifier/Vaporizer Your throat swab was sent for culture. Those results are typically sent to your primary care. Be sure to follow up in 2-3 days with your family doctor/primary care physician if no improvement so they can review those result and treat if necessary. If you don?t have a primary care doctor, I recommend you get one but in the mean time, you will have to return to a walk in clinic Follow up IMMEDIATELY for new or worsening symptoms or no Noticeable improvement over the next 48-72 hours. 911 for difficulty breathing or swallowing You were tested for today for COVID19 your test result should be back in the next 24-48 hours, you may check your results on the [facility] My Health Portal if you have trouble logging on you may call for assistance Make sure to take your Vitamins Vit. C Vit D and Zinc if you can take them Referrals: Reyna Atkinson MD [Primary Care Provider] - As needed Forms: Work/School Release Time of Disposition: 17:06 Medical Decision Making - Scot Inquiry Pt receiving controlled substance: No Scot was queried for this patient: No Vital Signs: 07/03/21 16:04 07/03/21 16:21 Temperature 98.4 F 98.4 F Temperature Source Oral Oral Pulse Rate 104 H Pulse Rate [Right Brachial] 104 H Respiratory Rate 18 18 Blood Pressure 127/79 Blood Pressure [Right Arm] 127/79 Blood Pressure Mean [Right Arm] 95 Blood Pressure Source Automatic Cuff Blood Pressure Source [Right Arm] Automatic Cuff Blood Pressure Position Sitting Blood Pressure Position [Right Arm] Sitting 02 Sat by Pulse Oximetry 96 Oxygen Delivery Method Room Air Room Air - Lab Data Lab results reviewed: Yes: I reviewed the patient's lab results. Lab Results 07/03/21 15:58: Influenza Type A Ag Negative, Influenza Type B Ag Negative 07/03/21 15:58: Strep Scn Rapid Clinic Negative Orders (Tests/Meds): ORDERS Category Date Time Status Strep Screen Confirmation Stat Micro 07/03/21 15:58 Received [facility] [place] [facility] [place]PI - General Stated complaint: cold,runnynose,sore throat,cough Time Seen by Provider: 07/03/21 17:00 Mode of Arrival: Ambulatory Source of Information: Patient Limitations: No Limitations Description of Symptoms (Recalled from Triage Doc. by RN): wants to be tested for strep, flu, covid. 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
[2021-07-03 19:04] LABS: Adenovirus,PCR Not Detected (NotDetected); Bordetella Pertussis Not Detected (NotDetected); Chlamydophila Pneumoniae, PCR Not Detected (NotDetected); Coronavirus 19, PCR Not Detected (NotDetected); Coronavirus 229E Not Detected (NotDetected); Coronavirus NL63 Not Detected (NotDetected); Coronavirus OC43 Not Detected (NotDetected); Coronovirus HKU1,PCR Not Detected (NotDetected); Human Metapneumovirus Not Detected (NotDetected); Influenza A, PCR Not Detected (NotDetected); Influenza AH1, 2009 Not Detected (NotDetected); Influenza AH1, PCR Not Detected (NotDetected); Influenza AH3,PCR Not Detected (NotDetected); Influenza B, PCR Not Detected (NotDetected); Mycoplasma Pneumoniae, PCR Not Detected (NotDetected); Parainfluenza 1, PCR Not Detected (NotDetected); Parainfluenza 2, PCR Not Detected (NotDetected); Parainfluenza 3, PCR Not Detected (NotDetected); Parainfluenza 4, PCR Not Detected (NotDetected); Respiratory Syncytial Virus Not Detected (NotDetected); Rhinovirus/Enterovirus Not Detected (NotDetected)
== END 2021-07-03 17:12 | disposition home or self-care (01) ==
PROVIDERS: Emergency Provider Nurse Practitioner; PCP Family Medicine
DX: J06.9 Acute upper respiratory infection, unspecified (principal)
CPT/HCPCS: 87581; 87632; 87798; 87804; 87880; 99213; C9803; G0463; U0003; U0005

== ENCOUNTER 2022-04-07 10:57 | Emergency (ER) | payer BC, SELFPAY ==
[2022-04-07 11:10] VITALS: BP 136/83; PULSE 86; RESP 18; TEMP 36.8; O2SAT 99; BMI 29.6
--- NOTE | 2022-04-07 11:44 | EXP.UTC ---
Discharge Plan Disposition Patient Disposition: Home, Self-Care Condition: Good Prescriptions Prescriptions: New polymyxin B sulf-trimethoprim [Polytrim] 10,000 unit- 1 mg/mL drops 2 drp ophthalmic (eye) Q6H 7 Days Qty: 10 0RF Rx Instructions: left eye while awake; do not exceed 6 doses in 24 hours No Action escitalopram oxalate 10 MG tablet 10 mg PO DAILY Referrals Follow up/Referrals: Reyna Atkinson MD [Primary Care Provider] - See instructions Activity Restrictions/Add. Instructions Additional Instructions/Restrictions: Wash hands before and after applying drops to eye Clear matting from eyes with warm water and baby shampoo use drops as prescribed Follow up with your Eye Doctor if no improvement or any worsening of symptoms Clinical Impressions Clinical Impression: Conjunctivitis Stand Alone Forms Stand Alone Forms: Work/School Release Instructions Patient Instructions: Conjunctivitis, DI for Conjunctivitis Discharge ED Provider: Daksha Juares [facility] [place] HPI General Stated complaint: LT eye redness w/ drainage Mode of Arrival: Ambulatory Source of Information: Patient Limitations: No Limitations Time Seen by Provider: 04/07/22 11:44 Description of Symptoms (Recalled from Triage Doc. 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 States that since then her left eye has been red, draining and matting so this mornign she woke up and it was matted shut and has continued to get worse so she came in Related Data Home Medications Medication Instructions Recorded Confirmed escitalopram oxalate 10 mg tablet 10 mg PO DAILY Depression 02/24/21 04/07/22 Previous Rx's Medication Instructions Recorded polymyxin B sulfate 10,000 2 drp ophthalmic (eye) Q6H 7 days 04/07/22 unit-trimethoprim 1 mg/mL eye #10 mL drops (Polytrim) Allergies Allergy/AdvReac Type Severity Reaction Status Date / Time No Known Allergies Allergy Verified 04/08/21 10:45 Worker's Comp Is this a Worker's Comp case?: No [facility] Disclaimer: The information contained in this section may have been updated after the patient was seen, as this information can be updated by other users. Medical History (Updated 04/07/22 @ 11:52 by Daksha Juares APRN) Anxiety Depression Migraine Urinary tract infection Surgical History (Updated 04/07/22 @ 11:22 by Cassia Delgado RN) History of tonsillectomy Social History (Updated 04/07/22 @ 11:22 by Cassia Delgado RN) Smoking Status: Never smoker alcohol intake: never substance use type: denies use current occupational status: employed Travel in the last 8 weeks: None ROS Obtained: Yes All systems reviewed & no additional complaints except as documented and Yes Systems reviewed as appropriate & no additional complaints except as documented Constitutional Constitutional: Reports system reviewed and no additional complaints, except as documented and Reports as per HPI Eyes Eyes: Reports system reviewed and no additional complaints, except as documented, Reports as per HPI, Reports eye discharge and Reports irritation ENT Ears, Nose, Mouth, and Throat: Reports system reviewed and no additional complaints, except as documented and Reports as per HPI Cardiovascular Cardiovascular: Reports system reviewed and no additional complaints, except as documented and Reports as per HPI Physical Exam General General appearance: alert and in no apparent distress Eye Eye exam: Present conjunctival redness and discharge Respiratory Respiratory exam: Present normal lung sounds bilatera
[2022-04-07 11:48] VITALS: BP 136/83; PULSE 86; RESP 18; TEMP 36.8; O2SAT 99
== END 2022-04-07 11:57 | disposition home or self-care (01) ==
PROVIDERS: Emergency Provider Nurse Practitioner; PCP Family Medicine
DX: H10.9 Unspecified conjunctivitis (principal)
CPT/HCPCS: 99212; G0463

== ENCOUNTER 2022-05-25 15:39 | Emergency (ER) | payer BC, SELFPAY ==
--- NOTE | 2022-05-25 16:21 | EXP.UTC ---
Discharge Plan Disposition Patient Disposition: Home, Self-Care Condition: Good Prescriptions Prescriptions: New azithromycin [Zithromax] 250 mg tablet 250 mg PO UD DOSE PK Qty: 6 0RF Rx Instructions: Take two (2) tablets today, then one (1) tablet days #2 thru #5 methylprednisolone 4 mg Tablets,Dose Pack 4 mg PO DIRECTED Qty: 21 0RF [id number]-[id number] [Bromfed DM] 2-30-10 mg/5 mL Syrup 5 ml PO Q6H PRN (Reason: Cough) Qty: 240 0RF No Action escitalopram oxalate 20 mg tablet 20 mg PO DAILY norethindrone ac-eth estradiol [Loestrin 05/08 ()] 1-20 mg-mcg tablet 1 tab PO DAILY Referrals Follow up/Referrals: Reyna Atkinson MD [Primary Care Provider] - See instructions Activity Restrictions/Add. Instructions Additional Instructions/Restrictions: Drink plenty of fluids. Take tylenol or ibuprofen for pain or fever. Take the medications as directed. Follow up with your regular doctor. GO TO THE ER FOR ANY WORSENING SYMPTOMS Clinical Impressions Clinical Impression: Sinusitis Instructions Patient Instructions: Sinusitis, DI for Sinusitis Discharge ED Provider: Jhonny Pereira [facility] [place] HPI General Stated complaint: congestion, cough Time Seen by Provider: 05/25/22 16:21 History of Present Illness Provider Complaint: She has had sinus congestion and chest congestion for the past 3 days. Related Data Home Medications Medication Instructions Recorded Confirmed escitalopram oxalate 20 mg tablet 20 mg PO DAILY Depression 05/20/22 05/25/22 norethindrone acetate 1 mg-ethinyl 1 tab PO DAILY control 05/25/22 05/25/22 estradiol 20 mcg tablet (Loestrin) Previous Rx's Medication Instructions Recorded azithromycin 250 mg tablet 250 mg PO UD DOSE PK #6 tabs 05/25/22 (Zithromax) [id number]-[id number] 5 ml PO Q6H PRN Cough #240 mL 05/25/22 2 mg-30 mg-10 mg/5 mL oral syrup (Bromfed DM) methylprednisolone 4 mg tablets in 4 mg PO DIRECTED #21 tabs 05/25/22 a dose pack Allergies Allergy/AdvReac Type Severity Reaction Status Date / Time No Known Allergies Allergy Verified 05/25/22 16:38 [facility] Disclaimer: The information contained in this section may have been updated after the patient was seen, as this information can be updated by other users. Medical History Anxiety Depression Migraine Urinary tract infection Surgical History History of tonsillectomy Social History Smoking Status: Never smoker alcohol intake: never substance use type: denies use current occupational status: employed Travel in the last 8 weeks: None ROS Obtained: Yes All systems reviewed & no additional complaints except as documented Constitutional Constitutional: Reports poor appetite Eyes Eyes: Reports system reviewed and no additional complaints, except as documented ENT Ears, Nose, Mouth, and Throat: Reports as per HPI Cardiovascular Cardiovascular: Reports system reviewed and no additional complaints, except as documented and Denies chest pain Respiratory Respiratory: Denies shortness of breath, Denies chest congestion, Reports cough, Denies stridor and Denies wheezing Gastrointestinal Gastrointestingal: Reports system reviewed and no additional complaints, except as documented; Denies abdominal pain, diarrhea or vomiting Musculoskeletal Musculoskeletal: Reports system reviewed and no additional complaints, except as documented and Denies arthralgias Integumentary/Breasts Skin/Breast: Reports system reviewed and no additional complaints, except as documented and Denies rash Neurologic Neurologic: Denies paresthesias Allergic/Immunologic Allergic/Immunologic: Denies wheezing Physical Exam General General appearance: alert and in no apparent distress Head Head
[2022-05-25 16:30] VITALS: BP 133/76; PULSE 88; RESP 20; TEMP 36.8; O2SAT 100; BMI 25.8
[2022-05-25 16:34] LABS: Apearance,Urine Clear (Clear); Color,Urine Yellow (Yellow)
[2022-05-25 16:35] LABS: Bilirubin,Urine Negative (Negative); Blood, Urine Negative (Negative); Glucose,Urine (UA) Negative (Negative); Ketones,Urine t (Negative); Protein,Urine 1+ (Negative); UTC Leukocyte Esterase,Urine Negative (Negative); UTC Nitrate,Urine Negative (Negative); Urobilinogen,Urine 1 EU/dl (0.2)
[2022-05-25 17:35] VITALS: BP 133/76; PULSE 88; RESP 20; TEMP 36.8; O2SAT 100
== END 2022-05-25 17:32 | disposition home or self-care (01) ==
PROVIDERS: Emergency Provider Nurse Practitioner Family; PCP Family Medicine
DX: J32.9 Chronic sinusitis, unspecified (principal)
CPT/HCPCS: 81003; 99212; 99213; G0463

== ENCOUNTER 2022-06-18 15:59 | Emergency (ER) | payer BC, SELFPAY ==
[2022-06-18 16:00] VITALS: BP 135/75; PULSE 76; RESP 20; TEMP 36.8; O2SAT 98; BMI 26.3
--- NOTE | 2022-06-18 16:16 | EXP.UTC ---
Discharge Plan Disposition Patient Disposition: Home, Self-Care Condition: Good Prescriptions Prescriptions: New amoxicillin [amoxicillin] 500 mg tablet 500 mg PO TID 10 Days Qty: 30 0RF methylprednisolone 4 mg Tablets,Dose Pack 4 mg PO DIRECTED Qty: 21 0RF No Action escitalopram oxalate 20 mg tablet 20 mg PO DAILY norethindrone ac-eth estradiol [Loestrin 05/08 ()] 1-20 mg-mcg tablet 1 tab PO DAILY Referrals Follow up/Referrals: Reyna Atkinson MD [Primary Care Provider] - See instructions Activity Restrictions/Add. Instructions Additional Instructions/Restrictions: Drink plenty of fluids. Take tylenol or ibuprofen for pain or fever. Take the medications as directed. Follow up with your regular doctor. GO TO THE ER FOR ANY WORSENING SYMPTOMS Clinical Impressions Clinical Impression: Pharyngitis Stand Alone Forms Stand Alone Forms: Work/School Release Instructions Patient Instructions: DI for Strep Throat, Strep Throat Discharge ED Provider: Jhonny Pereira [facility] [place] General Stated complaint: sore throat, fatigued Mode of Arrival: Ambulatory Source of Information: Patient Limitations: No Limitations Time Seen by Provider: 06/18/22 16:14 Description of Symptoms (Recalled from Triage Doc. by RN): sore throat, possible strep, swelling in roof of mouth as well HEENT Symptoms (Recalled from RN notes): Yes Resp Symptoms (Recalled from RN notes): No Skin Symptoms (Recalled from RN notes): No MS Symptoms (Recalled from RN notes): No Functional Status (Recalled from RN notes): n/a History of Present Illness Provider Complaint: She states that for the past 2 days she has had a worsening sore throat. She has had chills, but no documented fever. 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 Related Data Home Medications Medication Instructions Recorded Confirmed escitalopram oxalate 20 mg tablet 20 mg PO DAILY Depression 05/20/22 06/18/22 norethindrone acetate 1 mg-ethinyl 1 tab PO DAILY control 05/25/22 06/18/22 estradiol 20 mcg tablet (Loestrin) Previous Rx's Medication Instructions Recorded amoxicillin 500 mg tablet 500 mg PO TID 10 days #30 tabs 06/18/22 methylprednisolone 4 mg tablets in 4 mg PO DIRECTED #21 tabs 03/02/23 a dose pack Allergies Allergy/AdvReac Type Severity Reaction Status Date / Time No Known Allergies Allergy Verified 06/18/22 16:16 Worker's Comp Is this a Worker's Comp case?: No [facility] Disclaimer: The information contained in this section may have been updated after the patient was seen, as this information can be updated by other users. Medical History Anxiety Depression Migraine Urinary tract infection Surgical History History of tonsillectomy Social History Smoking Status: Never smoker alcohol intake: never substance use type: denies use current occupational status: employed Travel in the last 8 weeks: None ROS Obtained: Yes All systems reviewed & no additional complaints except as documented Constitutional Constitutional: Reports chills and Reports fever(s) Eyes Eyes: Denies eye discharge ENT Ears, Nose, Mouth, and Throat: Reports as per HPI Cardiovascular Cardiovascular: Denies chest pain Respiratory Respiratory: Denies chest congestion and Reports cough Gastrointestinal Gastrointestingal: Reports nausea; Denies abdominal pain, constipation, cramping, diarrhea or vomiting Musculoskeletal Musculoskeletal: Denies arthralgias Integumentary/Breasts Skin/Breast: Denies rash Neurologic Neurologic: Denies paresthesias Physical Exam General General appearance: alert and in no apparent distress Head Head exam: atraumatic, normocephalic and normal inspection Eye Eye exam: Present normal appeara
[2022-06-18 16:23] LABS: UTC Strep Screen (Rapid) Negative (Negative)
[2022-06-18 17:04] VITALS: BP 135/75; PULSE 76; RESP 20; TEMP 36.8; O2SAT 98
== END 2022-06-18 17:03 | disposition home or self-care (01) ==
PROVIDERS: Emergency Provider Nurse Practitioner Family; PCP Family Medicine
DX: J02.9 Acute pharyngitis, unspecified (principal); Z20.828 Contact with and (suspected) exposure to other viral communicable diseases
CPT/HCPCS: 87880; 99212; 99213; G0463

== ENCOUNTER → 2022-10-28 11:31 | Outpatient (CLI) | payer BC, SELFPAY ==
[2022-10-28 12:01] LABS: Basophils % 0.5 % (0.1-2.0); Eosinophils # 0.2 K/mm3 (0.0-0.4); Eosinophils % 2.4 % (0.1-12.0); Hematocrit 42.6 % (37.0-47.0); Hemoglobin 13.8 g/dL (12.2-16.2); Lymphocytes # 2.3 K/mm3 (0.7-4.5); Lymphocytes % 35.4 % (10-50); Mean Corpuscular HGB Conc 32.4 g/dL (31.8-35.4); Mean Corpuscular Hemoglobin 27.7 pg (27.0-31.2); Mean Corpuscular Volume 85.6 fl (81-99); Mean Platelet Volume 7.6 fl (7.4-10.4); Monocytes # 0.4 K/mm3 (0.1-1.0); Monocytes % 6.4 % (1.7-9.3); Neutrophils # 3.6 K/mm3 (1.8-7.8); Neutrophils % 55.3 % (37.0-80.0); Platelet Count 337 K/mm3 (142-424); Red Blood Count 4.98 M/mm3 (4.20-5.40); Red Cell Distribution Width 13.3 % (11.5-17.5); White Blood Count 6.5 K/mm3 (4.8-10.8)
[2022-10-28 12:29] LABS: Alanine Aminotransferase 27 U/L (12-78); Albumin Level 4.4 g/dl (3.5-5.0); Albumin/Globulin Ratio 1.5 (1.1-1.8); Alkaline Phosphatase 60 U/L (38-126); Aspartate Amino Transferase 31 U/L (14-36); Bilirubin,Total 0.5 mg/dl (0.2-1.3); Blood Urea Nitrogen 12 mg/dl (7-17); Calcium 9.5 mg/dl (8.4-10.2); Carbon Dioxide 27 mmol/L (22.0-30.0); Chloride 107 mmol/L (98-107); Estimated Glomerular Filt Rate 101 ml/min (>60); GFR (African American) 122 ML/MIN (>60); Glucose 85 mg/dl (74-100); Sodium 139 mmol/L (136-145); Total Protein,Serum 7.4 g/dl (6.3-8.2)
[2022-10-28 12:43] LABS: 25-OH Vitamin D, Total 70.6 ng/mL (30-100)
[2022-10-28 12:54] LABS: Free T4 (Free Thyroxine) 1.06 ng/dl (0.78-2.19)
[2022-10-28 12:58] LABS: Thyroid Stimulating Hormone 1.18 uIU/mL (0.465-4.68)
[2022-10-28 13:18] LABS: Vitamin B12 821 pg/mL (239-931)
[2022-10-29 16:03] LABS: Endomysial IgA Antibody Negative (Negative)
[2022-10-29 16:12] LABS: Deamidated Gliadin Abs, IgA 16 units (0-19); Deamidated Gliadin Abs, IgG 8 units (0-19); Tissue Transglutaminase IgA Ab 2 U/mL (0-3); Tissue Transglutaminase IgG Ab 5 U/mL (0-5)
[2022-10-30 08:24] LABS: Reticulin IgA Antibody Negative titer (Neg:<1:2.5)
[2022-11-01 00:07] LABS: F001-IgE Egg White <0.10 kU/L (Class 0); F002-IgE Milk 0.13 kU/L (Class 0/I); F003-IgE Codfish <0.10 kU/L (Class 0); F004-IgE Wheat <0.10 kU/L (Class 0); F010-IgE Sesame Seed <0.10 kU/L (Class 0); F013-IgE Peanut <0.10 kU/L (Class 0); F014-IgE Soybean <0.10 kU/L (Class 0); F024-IgE Shrimp <0.10 kU/L (Class 0); F256-IgE Walnut <0.10 kU/L (Class 0); F338-IgE Scallop <0.10 kU/L (Class 0)
== END ==
PROVIDERS: PCP Physician Assistant; Visit Provider Physician Assistant
DX: R10.9 Unspecified abdominal pain (principal); R53.83 Other fatigue; R63.5 Abnormal weight gain
CPT/HCPCS: 36415; 80053; 82306; 82607; 83516; 84439; 84443; 85025; 86003; 86008; 86255; 86256

== ENCOUNTER → 2023-04-15 14:36 | Outpatient (CLI) | payer BC, SELFPAY ==
[2023-04-15 16:00] LABS: HCG,Quantitative 830 mIU/ml (0-5.42)
[2023-04-17 10:09] LABS: Progesterone 11.2 ng/mL (.)
== END ==
LOC: LAB 14:37
PROVIDERS: PCP Family Medicine; Visit Provider Nurse Practitioner Obstetrics & Gynecology
DX: Z32.01 Encounter for pregnancy test, result positive (principal)
CPT/HCPCS: 36415; 84144; 84702

== ENCOUNTER 2023-04-27 16:48 | Outpatient (CLI) | payer BC, SELFPAY ==
[2023-04-30 22:32] LABS: Neisseria gonorrhoeae, NAA Negative (Negative)
== END 2023-04-27 23:59 ==
LOC: LAB.DROPOF 16:48
PROVIDERS: PCP Nurse Practitioner Obstetrics & Gynecology; Visit Provider Nurse Practitioner Obstetrics & Gynecology
DX: Z34.91 Encounter for supervision of normal pregnancy, unspecified, first trimester (principal); Z3A.09 9 weeks gestation of pregnancy
CPT/HCPCS: 87086; 87491; 87591

== ENCOUNTER 2023-05-04 13:23 | Outpatient (CLI) | payer BC, SELFPAY ==
--- NOTE | 2023-05-04 13:24 | US_ITS ---
PROCEDURE: US OB <= 14 WEEKS FETUS CLINICAL INDICATION: for dates COMPARISON: No exams were available for comparison FINDINGS: Transvaginal sonographic images of the pelvis were obtained. From her last menstrual period she is 10weeks 4days. An intrauterine gestational sac is present with a pole with a crown-rump length of 1.1cm This correlates to a gestational age of 7weeks 2days. heart tones are present with an FHR of 152bpm. Yolk sac is noted. The yolk sac measures 6.1mm. There is an area measuring 1.7 cm x 2.5 cm that could reflect a small subchorionic hemorrhage. The right ovary is seen and appears normal. The left ovary is seen and appears normal. There appears to be a corpus luteum. There is no fluid in the cul-de-sac. IMPRESSION: 1. Viable fetus within the uterine cavity. 2. She is 7 weeks 2 days by ultrasound and her due date should be revised to reflect this. Her new TRAM will be December 19, 2023. 3. Small subchorionic hemorrhage. 4. Both ovaries are seen and appear normal. 5. No fluid in the cul-de-sac. Dictated by: Gigi Alvarado MD 05/04/2023 16:41 Gigi Alvarado MD in [facility] 05/04/2023 16:41
[2023-05-04 14:21] LABS: Basophils % 0.2 % (0.1-2.0); Eosinophils # 0.1 K/mm3 (0.0-0.4); Hematocrit 41.9 % (37.0-47.0); Hemoglobin 13.5 g/dL (12.2-16.2); Lymphocytes # 1.9 K/mm3 (0.7-4.5); Lymphocytes % 20.8 % (10-50); Mean Corpuscular HGB Conc 32.2 g/dL (31.8-35.4); Mean Corpuscular Hemoglobin 27.5 pg (27.0-31.2); Mean Corpuscular Volume 85.4 fl (81-99); Mean Platelet Volume 7.2 fl (7.4-10.4); Monocytes # 0.6 K/mm3 (0.1-1.0); Monocytes % 6.2 % (1.7-9.3); Neutrophils # 6.4 K/mm3 (1.8-7.8); Neutrophils % 71.8 % (37.0-80.0); Platelet Count 294 K/mm3 (142-424); Red Blood Count 4.91 M/mm3 (4.20-5.40); Red Cell Distribution Width 13.6 % (11.5-17.5)
[2023-05-05 07:18] LABS: HIV Screen 4th Generation wRfx Non Reactive (Non Reactive); Rapid Plasma Reagin Ab Titer Non Reactive titer (NonRea<1:1)
[2023-05-05 10:23] LABS: Hepatitis B Surface Antigen Negative; Hepatitis C Antibody Non Reactive
== END 2023-05-04 23:59 ==
PROVIDERS: PCP Nurse Practitioner Obstetrics & Gynecology; Visit Provider Nurse Practitioner Obstetrics & Gynecology
DX: Z34.91 Encounter for supervision of normal pregnancy, unspecified, first trimester (principal); Z3A.10 10 weeks gestation of pregnancy
CPT/HCPCS: 36415; 76801; 85025; 86593; 86703; 86762; 86850; 87340; 87380; G0432

== ENCOUNTER 2023-08-04 13:42 | Outpatient (CLI) | payer BC, SELFPAY ==
--- NOTE | 2023-08-04 13:48 | US_ITS ---
PROCEDURE: US OB /MATERNAL DETAIL CLINICAL INDICATION: 20 week anatomy scan COMPARISON: No exams were available for comparison FINDINGS: Transabdominal sonographic images of the pelvis were obtained. From her established due date she is 20 weeks 1 day. Single viable intrauterine gestation. Cephalic position. Placenta: Posteriorplacenta grade 1. There is a placental boggs seen. There is an average amount of fluid. A contraction is seen anteriorly in the uterine muscle. The cervix appears satisfactory. Closed and measuring 3.9 cm in length. Complete survey performed and was unremarkable on the submitted images as in PACS. No discrete anomalies identified on survey imaging by technologist. Active fetus. Three-vessel cord with satisfactory umbilical cord insertion. 4- chamber heart noted. Situs, aortic arch, LVOT, RVOT, three-vessel view appear normal. Survey of brain & ventricles Unremarkable. Cerebellum, thalamus, choroid plexus, cisterna magna appear normal. Face and neck survey unremarkable. Profile, nasion, lips and nose appeared normal. Diaphragm and chest views unremarkable. Abdomen: Both kidneys noted and unremarkable. Stomach and bladder noted and satisfactory. Spine: Survey of the spine satisfactory with no anomalies identified nor imaged. Cervical, thoracic, lower spine appear normal. Both arms and legs noted. Amniotic Fluid: Adequate. Measurements: Average ultrasound age 21weeks 1day. Estimated due date by ultrasound age 0812/14/2023. Estimated weight 352g BPD = 22weeks 5days HC = 21weeks 0 days AC = 20weeks 2days FL = 20weeks 3days Growth Percentile= 61 Heart Rate = 144bpm Cerebellum = 20weeks 1day Humerus = 20weeks 4days HC/AC is 1.24 FL/BPD is 0.61 FL/AC is 0.22 IMPRESSION: 1. Viable fetus in the cephalic presentation with a posterior placenta grade 1. There is a small placental Boggs. 2. The fluid is within normal limits. 3. Anatomical scan appears normal. 4. biometry is consistent with a dates. Dictated by: Gigi Alvarado MD 08/04/2023 15:59 Gigi Alvarado MD in [facility] 08/04/2023 15:59
== END 2023-08-04 23:59 | disposition home or self-care (01) ==
LOC: RAD 13:45
PROVIDERS: PCP Family Medicine; Visit Provider Nurse Practitioner Obstetrics & Gynecology
DX: O26.892 Other specified pregnancy related conditions, second trimester (principal); Z3A.20 20 weeks gestation of pregnancy
CPT/HCPCS: 76811

== ENCOUNTER 2023-11-18 14:02 | Outpatient (CLI) | payer BC, SELFPAY ==
--- NOTE | 2023-11-18 14:26 | US_ITS ---
PROCEDURE: US OB FOLLOW UP CLINICAL INDICATION: LGA COMPARISON: US US OB <= 14 WEEKS FETUS from 05/04/2023 US US OB /MATERNAL DETAIL from 08/04/2023 FINDINGS: Transabdominal sonographic images of the pelvis were obtained. The following parameters are obtained: From her established due date she is 35weeks 2days Viable fetus in the breech presentation with a posterior placenta grade 1. A placental Boggs is still present. The cervix measures 3.54 cm. heart rate: 138bpm bpm. BPD: 36weeks 3days, 82 percentile HC: 37weeks 0 days, 57 percentile AC: 35weeks 0 days, 49 percentile FL: 35week 0 dayss, 35 percentile HC/AC: 1.05 FL/BPD: 0.76 FL/AC: 0.22 Growth percentile: 49 Amniotic fluid index: 14.45cm, MVP 4.42 cm. No obvious anomalies evident. profile seen, stomach, bladder, kidneys, four chamber heart appear normal. IMPRESSION: 1. Viable fetus in the BREECH presentation with a posterior placenta grade 1. 2. The fluid is within normal limits with an amniotic fluid index of 14.45 cm, MVP 4.42 cm. 3. There has been good interval growth with the fetus currently 49th percentile. 4. Limited anatomical scan appears normal. Dictated by: Gigi Alvarado MD 11/19/2023 11:08 Gigi Alvarado MD in [facility] 11/19/2023 11:08
== END 2023-11-18 23:59 | disposition home or self-care (01) ==
LOC: RAD 14:02
PROVIDERS: PCP Nurse Practitioner Obstetrics & Gynecology; Visit Provider Nurse Practitioner Obstetrics & Gynecology
DX: O36.63X0 Maternal care for excessive fetal growth, third trimester, not applicable or unspecified (principal); Z3A.35 35 weeks gestation of pregnancy
CPT/HCPCS: 76816

== ENCOUNTER 2023-11-22 16:30 | Outpatient (CLI) | payer BC, SELFPAY | END 2023-11-22 23:59 | disposition home or self-care (01) | LOC: LAB.DROPOF 16:30 | PROVIDERS: PCP Nurse Practitioner Obstetrics & Gynecology; Visit Provider Nurse Practitioner Obstetrics & Gynecology | DX: Z34.90 Encounter for supervision of normal pregnancy, unspecified, unspecified trimester (principal) | CPT/HCPCS: 86403 ==